=== PATIENT | male | born 1945 | race Caucasian/White ===

== ENCOUNTER 2022-03-11 23:43 | Emergency (ER) | payer MEDICARE, OTHER ==
[2022-03-12] MEDS ORDERED: Sodium Chloride 0.9% 10 ML Syringe FLUSH PRN (00:39)
[2022-03-12] MEDS ORDERED: Sodium Chloride 0.9% 1,000 ML IV SCH (00:45)
[2022-03-12 01:30] LABS: ESTIMATED GFR 57 mL/min (>60)
[2022-03-12] MEDS ORDERED: Tamsulosin 0.4 MG Cap.ER PO ONE (02:47)
[2022-03-12] MEDS ORDERED: Iopamidol 612 MG/ML 100 ML Bottle IVPUSH ONE (03:03)
[2022-03-12] MEDS ORDERED: Sodium Chloride 0.9% 10 ML Syringe FLUSH ONE (03:03)
== END 2022-03-12 04:16 | disposition home or self-care (01) ==
LOC: JD.ED 23:43
DX: N13.2 Hydronephrosis with renal and ureteral calculous obstruction (principal); N40.0 Benign prostatic hyperplasia without lower urinary tract symptoms; R00.1 Bradycardia, unspecified; Z79.899 Other long term (current) drug therapy
CPT/HCPCS: 36415; 74177; 80053; 81001; 83690; 83735; 85025; 86140; 87086; 93005; 99284; A9270; J3490; Q9967; 93010

== ENCOUNTER 2022-04-01 13:20 | Emergency (ER) | payer MEDICARE, OTHER ==
[2022-04-01] MEDS ORDERED: Sodium Chloride 0.9% 10 ML Syringe FLUSH PRN (13:37)
[2022-04-01] MEDS ORDERED: HYDROmorphone 0.5 MG/0.5 ML Syringe IVPUSH ONE (13:37)
[2022-04-01] MEDS ORDERED: fentaNYL 100 MCG/2 ML SDV IVPUSH ONE (16:59)
[2022-04-01] MEDS ORDERED: Ketorolac 15 MG/ML SDV IVPUSH ONE (17:49)
== END 2022-04-01 18:10 | disposition home or self-care (01) ==
LOC: JD.ED 13:20
DX: N20.0 Calculus of kidney (principal)
CPT/HCPCS: 36415; 51702; 74176; 80053; 81001; 83605; 83735; 85025; 87086; 96374; 96375; 99284; J1170; J1885; J3010; J3490